=== PATIENT | female | born 1975 | race African-American/Black ===

== ENCOUNTER 2020-05-03 16:28 | Emergency (ER) | payer OTHER, SELFPAY ==
[2020-05-03 16:59] VITALS: BP 149/93; PULSE 106; RESP 16; TEMP 36.4; O2SAT 99
--- NOTE | 2020-05-03 17:27 | ED.GENADULT ---
HPI - General Adult General Chief complaint: Extremity Injury, Upper Stated complaint: hand swollen and foot issue Time Seen by Provider: 05/03/20 17:16 Source: patient Mode of arrival: ambulatory Limitations: no limitations History of Present Illness HPI narrative: Patient is 44 years old white female presents with pain and swelling of the right hand started 4 to 5 days ago, also complaining of numbness and burning sensation at the dorsal side of left foot for a while. Last time was seen by family physician over 1 year. Patient works in a warehouse, status post carpal tunnel surgery November 2019. Patient denies any chest pain, back pain, neck pain or shortness of breath. Patient also denied any pain of the right arm or forearm. Just right hand and anterior side of the right wrist. Patient denies any fever, chills, nausea, vomiting. Patient smokes, drinks and uses marijuana. Related Data Allergies Allergy/AdvReac Type Severity Reaction Status Date / Time No Known Allergies Allergy Verified 05/03/20 17:49 Review of Systems Review of Systems: Narrative: CONSTITUTIONAL: Denies fever, chills, or sweats. EYES: Denies visual changes, redness, or discharge. ENT: Denies rhinorrhea, congestion, sore throat, or otalgia. CARDIOVASCULAR: Denies chest pain, palpitations, or edema. RESPIRATORY: Denies cough or dyspnea. GASTROINTESTINAL: Denies abdominal pain, nausea, vomiting, or diarrhea. GENITOURINARY: Denies dysuria or hematuria. SKIN: Denies rash or itching. MUSCULOSKELETAL: Denies back pain, joint pain, or myalgia. NEUROLOGIC: Denies headache, numbness, or weakness. PSYCHIATRIC: Denies anxiety or depression. Exam Narrative: Exam Narrative: General appearance: Well-developed, well-nourished Skin: Normal color Head: Normocephalic, nontraumatic Eyes: Clear conjunctiva ENT: Oropharynx normal, ears normal, nose normal Neck: Supple, nontender Chest and respiratory: Airway patent, no respiratory distress, no accessory muscle use Heart: Regular rate/rhythm Abdomen: Soft, nontender, no organomegaly, quiet bowel sounds Vascular: Normal peripheral pulses, normal capillary refill. Musculoskeletal: Normal range of motion, nontender back, right hand showed slight swelling, right wrist showed tenderness to light palpation anteriorly at the site of surgery Neurologic: Alert and oriented ?3, LEARNING SERVICES COORDINATOR is normal as tested, no gross motor deficit Course Course Emergency Course: Stable Reevaluation(s) Reevaluation #1: Patient left the ER without telling anybody. Date: 05/03/20 Time: 19:07 Vital Signs Vital signs: Vital Signs Temperature 36.4 C L 05/03/20 16:59 Pulse Rate 106 H 05/03/20 16:59 Respiratory Rate 16 05/03/20 16:59 Blood Pressure 149/93 H 05/03/20 16:59 Pulse Oximetry 99 05/03/20 16:59 Temperature 36.4 C L 05/03/20 16:59 Pulse Rate 106 H 05/03/20 16:59 Respiratory Rate 16 05/03/20 16:59 Blood Pressure 149/93 H 05/03/20 16:59 Pulse Oximetry 99 05/03/20 16:59 Medical Decision Making MDM Narrative Medical decision making narrative: Pain and swelling of the right hand. High likely secondary to carpal tunnel syndrome. Otherwise any follow-up early next week and patient also complaining of numbness and burning sensation of the dorsal side of left foot, peripheral neuropathy is a concern. Patient needs to follow-up with her family physician for further evaluation. Labs, sed rate and CRP ordered. Further plan to follow Differential Diagnosis Differential Diagnosis: carpal tunnel syndrome, peripheral neuropathy, arthritis of right wrist Vital Signs Vital Signs: Vital Signs Temperature 36.4 C L 05/03/20 16:59 Pulse Rate 106 H
[2020-05-03 17:53] LABS: Basophils Absolute Auto 0.1 K/mm3 (0.0-0.1); Basophils Percent Auto 0.7 % (0.2-1.2); Eosinophils Absolute Auto 0.2 K/mm3 (0-0.3); Eosinophils Percent Auto 2.8 % (0-4.4); Hemoglobin 14.6 g/dL (12.0-15.0); Immature Granulocyte Absolute 0.02 K/mm3 (0.00-0.031); Immature Granulocyte Percent A 0.2 % (0-0.5); Lymphocytes Absolute Auto 2.72 K/mm3 (0.9-3.2); Lymphocytes Percent Auto 31.5 % (18.3-44.2); Mean Corpuscular Hemoglobin 29.2 pg (26-34); Mean Platelet Volume 10.9 fl (7.4-10.4); Monocytes Absolute Auto 0.5 K/mm3 (0.1-0.6); Monocytes Percent Auto 5.8 % (2.6-8.5); Neutrophils Absolute Auto 5.1 K/mm3 (1.3-6.7); Platelet Count Result 233 k/mm3 (150-375); Red Cell Distribution Width 13.2 % (11.5-14.5); White Blood Count 8.6 K/mm3 (4.5-10.0)
[2020-05-03] MEDS: IBUPROFEN 400 MG TABLET 800 MG PO (17:53)
[2020-05-03 18:10] LABS: CRP 0.6 mg/dL (<1.0)
[2020-05-03 18:24] LABS: Erythrocyte Sedimentation Rate 15 mm/hr (0-20)
[2020-05-03 18:38] LABS: Alanine Aminotransferase 51 U/L (4-35); Alkaline Phosphatase 97 U/L (38-126); Anion Gap 4 mmol/L (8-16); Aspartate Amino Transferase 46 U/L (14-36); Bilirubin,Total 0.7 mg/dL (0.2-1.3); Blood Urea Nitrogen 11 mg/dL (7-17); CRP 0.7 mg/dL (<1.0); Calcium 9.2 mg/dL (8.4-10.2); Carbon Dioxide 25 mmol/L (22-30); Chloride 111 mmol/L (98-107); Estimated CRCL calculation 84 ml/min; Estimated Glomerular Filt Rate > 60; Glucose 90 mg/dL (65-105); Potassium 4.1 mmol/L (3.4-5.0); Sodium 140 mmol/L (137-145)
--- NOTE | 2020-05-03 19:03 | PC.NURSE ---
1900 - Patient seen exiting ER with her belongings. MD Agee informed. Patient has not returned to her room.
== END 2020-05-03 19:11 | disposition home or self-care (01) ==
PROVIDERS: Emergency Provider Emergency Medicine; PCP Internal Medicine
DX: G56.01 Carpal tunnel syndrome, right upper limb (principal); R20.2 Paresthesia of skin
CPT/HCPCS: 36415; 80053; 85025; 85652; 86140; 99283; A9270